=== PATIENT | female | born 1960 | race Caucasian/White ===

== ENCOUNTER 2016-11-14 07:47 | Outpatient (CLI) | payer MEDICAID | END 2016-11-14 07:48 | disposition home or self-care (01) | DX: I10 Essential (primary) hypertension (principal); E78.5 Hyperlipidemia, unspecified; E03.9 Hypothyroidism, unspecified ==

== ENCOUNTER 2017-03-22 08:00 | Outpatient (CLI) | payer MEDICAID ==
[2017-03-22 13:53] LABS: ALBUMIN/GLOBULIN RATIO 1.5 (1.0-2.2); BILIRUBIN,TOTAL 2.2 mg/dL (0.2-1.0); BUN - BLOOD UREA NITROGEN 11 mg/dL (6-20); CALCIUM 9.4 mg/dL (8.5-10.3); CARBON DIOXIDE - CO2 26 mmol/L (21-32); CHLORIDE 102 mmol/L (101-111); CHOL/HDL RATIO 2.8 (<4.4); CHOLESTEROL 205 mg/dL; CREATININE 0.5 mg/dL (0.4-1.0); GFR - MDRD 127 (>89); GLUCOSE 100 mg/dL (70-100); HDL CHOLESTEROL 74 mg/dL; LDL/HDL RATIO 1.4 (<4.4); POTASSIUM 3.8 mmol/L (3.5-5.0); SODIUM 137 mmol/L (135-145); TOTAL PROTEIN 7.9 g/dL (6.7-8.2); TRIGLYCERIDES 156 mg/dL; VLDL CHOLESTEROL 31 mg/dL
== END 2017-03-22 08:01 | disposition home or self-care (01) ==
LOC: LAB.N 08:00
PROVIDERS: ATTEND Family Medicine
DX: I10 Essential (primary) hypertension (principal); E78.5 Hyperlipidemia, unspecified; E03.9 Hypothyroidism, unspecified
CPT/HCPCS: 36415; 80053; 80061; 84443

== ENCOUNTER 2017-09-01 15:27 | Outpatient (CLI) | payer MEDICAID ==
--- NOTE | 2017-09-04 16:07 | Mammography Report ---
DIGITAL SCREENING MAMMOGRAM: 09/01/2017 CLINICAL INDICATION: A 57-year-old with history of late childbearing, for screening. COMPARISON: 12/2015, 12/2013, 11/2011, 12/2010. TECHNIQUE: Routine CC and MLO projections were obtained of the breasts. FINDINGS: Scattered fibroglandular tissue is present within the breasts. There are no dominant masses, suspicious microcalcifications, or secondary signs of malignancy. In comparison to the previous studies, there are no significant changes. ASSESSMENT: NO MAMMOGRAPHIC EVIDENCE OF MALIGNANCY. NO SIGNIFICANT INTERVAL CHANGES. RECOMMENDATION: Screening mammography is recommended annually. BIRADS category 1 - negative. STANDARD QUALIFYING STATEMENTS: 1. This examination was reviewed with the aid of Computed-Aided Detection (CAD). 2. A negative or benign imaging report should not delay biopsy if clinically suspicious findings are present. Consider surgical consultation if warranted. More than 5% of cancers are not identified by imaging. 3. Dense breasts may obscure an underlying neoplasm. TD: 09/04/2017 16:07
== END 2017-09-01 15:28 | disposition home or self-care (01) ==
LOC: DI.N 15:27
PROVIDERS: ATTEND Family Medicine
DX: Z00.00 Encounter for general adult medical examination without abnormal findings (principal)
CPT/HCPCS: 77067

== ENCOUNTER 2018-12-10 15:12 | Outpatient (CLI) | payer SELFPAY | END 2018-12-10 23:59 | disposition home or self-care (01) | LOC: LAB.N 15:12 | PROVIDERS: ATTEND Nurse Practitioner Gerontology | DX: E03.9 Hypothyroidism, unspecified (principal) | CPT/HCPCS: 36415; 84443 ==

== ENCOUNTER 2018-12-13 11:26 | Emergency (ER) | payer SELFPAY ==
--- NOTE | 2018-12-13 11:45 | ED Physician Documentation ---
PD HPI ABD PAIN - Stated complaint Stated Complaint: LT BACK PX - Chief complaint Chief Complaint: Abd Pain - History obtained from History obtained from: Patient - History of Present Illness Timing - onset: How many days ago (few) Timing - duration: Days (few) Timing - details: Gradual onset, Still present, Waxing and waning Quality: Aching, Sharp, Pain Location: LLQ Radiation: Left flank Improved by: Laying still, Position (feels better lying). No: Eating Worsened by: Moving, Breathing, Position. No: Eating, Palpation Associated symptoms: No: Fever, Nausea, Diarrhea, Constipation, Dysuria, Hem aturia, Chest pain Similar symptoms before: Has not had sx before Review of Systems Constitutional: denies: Fever, Chills, Myalgias Nose: denies: Rhinorrhea / runny nose, Congestion Throat: denies: Sore throat Cardiac: denies: Chest pain / pressure, Palpitations Respiratory: denies: Cough GI: reports: Abdominal Pain (left sided lower to lateral mid abd, and some to LLQ.) Skin: denies: Rash Musculoskeletal: reports: Back pain. denies: Neck pain, Extremity pain Neurologic: denies: Focal weakness, Numbness PD PAST MEDICAL HISTORY - Past Medical History Cardiovascular: None Respiratory: None Endocrine/Autoimmune: HyPOthyroidism GI: Chronic constipation : None HEENT: None Psych: Anxiety Musculoskeletal: None - Present Medications Home Medications: Ambulatory Orders Medication Instructions Recorded Confirmed Levothyroxine [Synthroid] 75 mcg PO DAILY 08/21/14 08/21/14 Hydrocodone/Acetaminophen [Irwin 1 each PO Q6H PRN #20 tablet 12/13/18 5-325 Tablet] Methocarbamol [Robaxin] 500 mg PO Q6H PRN #20 tablet 12/13/18 Naproxen 500 mg PO BID #20 tablet 12/13/18 - Allergies Allergies/Adverse Reactions: Allergies Allergy/AdvReac Type Severity Reaction Status Date / Time No Known Drug Allergies Allergy Verified 12/13/18 11:35 PD ED PE NORMAL - Vitals Vital signs reviewed: Yes - General General: Alert and oriented X 3, No acute distress, Well developed/nourished - HEENT HEENT: Pharynx benign - Neck Neck: Supple, no meningeal sign, No adenopathy - Cardiac Cardiac: RRR, No murmur - Respiratory Respiratory: Clear bilaterally - Abdomen Abdomen: Soft - Rectal Rectal: Deferred - Back Back: No spinal TTP, Other (some percussion tenderness left flank. No rash nor sores. ) - Derm Derm: Normal color, No rash Results - Vitals Vitals: Vital Signs - 24 hr 12/13/18 12/13/18 11:33 14:14 Temperature 36.7 C 36.7 C Heart Rate 86 66 Respiratory 18 16 Rate Blood Pressure 160/80 H 122/76 O2 Saturation 99 98 Oxygen O2 Source Room air - Labs Labs: Laboratory Tests 12/13/18 12/13/18 12/13/18 11:45 11:45 12:19 WBC 7.8 RBC 4.78 Hgb 15.0 Hct 43.1 MCV 90.1 MCH 31.4 H MCHC 34.8 RDW 12.3 Plt Count 224 MPV 9.9 Neut # (Auto) 4.6 Lymph # (Auto) 2.5 Towns # (Auto) 0.5 Eos # (Auto) 0.2 Baso # (Auto) 0.1 Absolute Nucleated RBC 0.00 Nucleated RBC % 0.1 Sodium 143 Potassium 3.6 Chloride 105 Carbon Dioxide 26 Anion Gap 12.0 BUN 11 Creatinine 0.6 Estimated GFR (MDRD) 102 Glucose 147 H Calcium 10.2 Total Bilirubin 1.2 H AST 24 ALT 36 Alkaline Phosphatase 84 Total Protein 8.8 H Albumin 4.6 Globulin 4.2 Albumin/Globulin Ratio 1.1 Lipase 36 Urine Color YELLOW Urine Clarity CLEAR Urine pH 6.0 Ur Specific Inlet 1.025 Urine Protein NEGATIVE Urine Glucose (UA) NEGATIVE Urine Ketones NEGATIVE Urine Occult Blood TRACE-LYSE Urine Nitrite NEGATIVE Urine Bilirubin NEGATIVE Urine Urobilinogen 0.2 (NORMAL) Ur Leukocyte Esterase NEGATIVE Ur Microscopic Review NOT INDICATED Urine Culture Comments NOT INDICATED - Rads (name of study) KUB CT Radiology: Prelim report reviewed (no acute process seen to account for the pain. ), EMP read contemporaneously, See rad report PD MEDICAL DECISION MAKING - ED course Complexity details: reviewed results (no signs of stones, diverticulitis, etc. Gave meds for pain. Presume it is musculoskeletal. No rash and it has been few days already.), considered differential (could be myofascial, given some tenderness in back and hurting with movement. But wraps to left lower abd, so concern for kidney stone, diverticulitis, vascular problem, among others. ), d/w patient Departure - Departure Disposition: 01 Home, Self Care Clinical Impression: Flank pain, acute Condition: Stable Record reviewed to determine appropriate education?: Yes Instructions: ED Flank Pain Uncertain Cause Follow-Up: Cynthia Peterson ARNP [Primary Care Provider] - Prescriptions: Hydrocodone/Acetaminophen [Irwin 5-325 Tablet] 1 each PO Q6H PRN #20 tablet PRN Reason: Pain Methocarbamol [Robaxin] 500 mg PO Q6H PRN #20 tablet PRN Reason: Spasms Naproxen 500 mg PO BID #20 tablet Comments: Your CT scan, blood tests, urine test did not show an acute problem such as infection or kidney stones. I presume your back pain is related to muscular pain. We will treated with anti-inflammatories and muscle relaxants and pain medicine. Activity as tolerated based on comfort. Recheck if not improving over the next several days to week. Discharge Date/Time: 12/13/18 14:23
[2018-12-13] MEDS ORDERED: SODIUM CHLORIDE 0.9% 1,000 ML IV ONE (12:14)
[2018-12-13] MEDS ORDERED: KETOROLAC 30 MG/ML VIAL IVP STA (12:14)
[2018-12-13] MEDS ORDERED: HYDROmorphone 1 MG/ML CARPUJECT IVP STA ×2 (12:14→13:40)
[2018-12-13] MEDS ORDERED: ONDANSETRON 4 MG/2 ML VIAL IVP STA (12:14)
[2018-12-13 12:23] LABS: BASOPHILS # (AUTO) 0.1 10^3/uL (0.0-0.1); BASOPHILS % (AUTO) 1.2 %; EOSINOPHILS # (AUTO) 0.2 10^3/uL (0.0-0.7); EOSINOPHILS % (AUTO) 2.1 %; LYMPHOCYTES # (AUTO) 2.5 10^3/uL (1.5-3.5); LYMPHOCYTES % (AUTO) 31.7 %; MEAN CORPUSCULAR HEMOGLOBIN 31.4 pg (27.0-31.0); MEAN CORPUSCULAR HGB CONC 34.8 g/dL (32.0-36.0); MEAN CORPUSCULAR VOLUME 90.1 fL (81.0-99.0); MEAN PLATELET VOLUME 9.9 fL (7.9-10.8); MONOCYTES # (AUTO) 0.5 10^3/uL (0.0-1.0); MONOCYTES % (AUTO) 6.3 %; NEUTROPHILS # (AUTO) 4.6 10^3/uL (1.5-6.6); NEUTROPHILS % (AUTO) 58.7 %; PLT - PLATELET COUNT 224 10^3/uL (130-450); RED BLOOD COUNT 4.78 10^6/uL (4.20-5.40); RED CELL DISTRIBUTION WIDTH 12.3 % (12.0-15.0); WHITE BLOOD COUNT 7.8 x10^3/uL (4.8-10.8)
[2018-12-13 12:35] LABS: ALBUMIN 4.6 g/dL (3.2-5.5); ALBUMIN/GLOBULIN RATIO 1.1 (1.0-2.2); BILIRUBIN,TOTAL 1.2 mg/dL (0.2-1.0); CALCIUM 10.2 mg/dL (8.5-10.3); CREATININE 0.6 mg/dL (0.4-1.0); TOTAL PROTEIN 8.8 g/dL (6.7-8.2)
[2018-12-13 12:36] LABS: BILIRUBIN,URINE NEGATIVE (NEGATIVE); GLUCOSE, URINE (UA) NEGATIVE (NEGATIVE); KETONES,URINE (UA) NEGATIVE (NEGATIVE); LEUKOCYTE ESTERASE, URINE NEGATIVE (NEGATIVE); NITRITE,URINE NEGATIVE (NEGATIVE); OCCULT BLOOD,URINE TRACE-LYSE (NEGATIVE); PROTEIN,URINE NEGATIVE (NEGATIVE); UROBILINOGEN,URINE 0.2 (NORMAL) E.U./dL (NORMAL)
[2018-12-13 12:37] LABS: CLARITY,URINE CLEAR (CLEAR)
--- NOTE | 2018-12-13 13:19 | CT Report ---
Reason: left flank to abd pain for few days Procedure Date: 12/13/2018 Accession Number: [id number] / [id number] Procedure: CT - Abdomen/Pelvis WO CPT Code: FULL RESULT: EXAM: CT ABDOMEN AND PELVIS (CT KUB) EXAM DATE: 12/13/2018 12:58 PM. CLINICAL HISTORY: Left flank to abd pain for few days. COMPARISONS: None. TECHNIQUE: Routine axial helical CT imaging was performed through the abdomen and pelvis without IV contrast. Reconstructions: Coronal and sagittal. In accordance with CT protocol optimization, one or more of the following dose reduction techniques were utilized for this exam: automated exposure control, adjustment of mA and/or KV based on patient size, or use of iterative reconstructive technique. FINDINGS: Lung Bases: Unremarkable. Right Kidney/Ureter: No stones, hydronephrosis, or hydroureter. No perinephric fat stranding. Left Kidney/Ureter: No stones, hydronephrosis, or hydroureter. No perinephric fat stranding. Other Solid Organs: Noncontrast images of the solid organs are grossly unremarkable. Gallbladder/Bile Ducts: Cholelithiasis without acute cholecystitis or biliary dilatation. Peritoneal Cavity: No free fluid, free air or mariana adenopathy. Bowel is grossly unremarkable. Pelvic Organs: No bladder stones or wall thickening. Benign anterior uterine calcification of no significance. Otherwise, images of the visualized pelvic organs are unremarkable. Vasculature: Unremarkable. Other: None. IMPRESSION: 1. Cholelithiasis without acute cholecystitis. 2. Otherwise negative examination. No evidence of nephrolithiasis or ureteral obstruction. RADIA
[2018-12-13] MEDS ORDERED: DEXAMETHASONE 10 MG/ML VIAL IVP STA (13:40)
[2018-12-13 14:15] VITALS: BP 122/76
== END 2018-12-13 14:23 | disposition home or self-care (01) ==
LOC: ED 11:26
DX: R10.32 Left lower quadrant pain (principal); M54.9 Dorsalgia, unspecified; K80.20 Calculus of gallbladder without cholecystitis without obstruction
CPT/HCPCS: 36415; 74176; 80053; 81003; 83690; 85025; 96361; 96374; 96375; 96376; 99283; J1170; 81001; 87086

== ENCOUNTER 2020-01-30 11:11 | Outpatient (CLI) | payer MEDICAID ==
[2020-01-30 18:18] LABS: BASOPHILS # (AUTO) 0.1 10^3/uL (0.0-0.1); BASOPHILS % (AUTO) 1.5 %; EOSINOPHILS # (AUTO) 0.2 10^3/uL (0.0-0.7); EOSINOPHILS % (AUTO) 3.5 %; HGB - HEMOGLOBIN 14.8 g/dL (12.0-16.0); LYMPHOCYTES # (AUTO) 1.7 10^3/uL (1.5-3.5); LYMPHOCYTES % (AUTO) 36.1 %; MEAN CORPUSCULAR HGB CONC 33.3 g/dL (32.0-36.0); MEAN CORPUSCULAR VOLUME 96.1 fL (81.0-99.0); MONOCYTES # (AUTO) 0.3 10^3/uL (0.0-1.0); MONOCYTES % (AUTO) 6.3 %; NEUTROPHILS # (AUTO) 2.5 10^3/uL (1.5-6.6); NEUTROPHILS % (AUTO) 52.4 %; PLT - PLATELET COUNT 226 10^3/uL (130-450); RED BLOOD COUNT 4.63 10^6/uL (4.20-5.40); RED CELL DISTRIBUTION WIDTH 12.3 % (12.0-15.0); WHITE BLOOD COUNT 4.8 x10^3/uL (4.8-10.8)
[2020-01-30 18:40] LABS: ALBUMIN 4.7 g/dL (3.2-5.5); ALBUMIN/GLOBULIN RATIO 1.7 (1.0-2.2); ALKALINE PHOSPHATASE 67 IU/L (42-121); ALT ALANINE AMINOTRANSFERASE 36 IU/L (10-60); AST ASPARTATE AMINOTRANSFERASE 29 IU/L (10-42); BUN - BLOOD UREA NITROGEN 10 mg/dL (6-20); CALCIUM 9.6 mg/dL (8.5-10.3); CARBON DIOXIDE - CO2 27 mmol/L (21-32); CHLORIDE 102 mmol/L (101-111); CREATININE 0.6 mg/dL (0.4-1.0); CRP - C-REACTIVE PROTEIN < 1.0 mg/dL (0-1.0); GLUCOSE 100 mg/dL (70-100); SODIUM 137 mmol/L (135-145); TOTAL PROTEIN 7.5 g/dL (6.7-8.2)
[2020-01-30 18:49] LABS: THYROID STIMULATING HORMONE 0.52 uIU/mL (0.34-5.60)
[2020-01-30 18:50] LABS: FREE T3 3.68 pg/mL (2.5-3.9)
[2020-01-30 18:51] LABS: FREE T4 (FREE THYROXINE) 1.21 ng/dL (0.58-1.64)
== END 2020-01-30 23:59 | disposition home or self-care (01) ==
LOC: LAB.WCP 11:11
PROVIDERS: ATTEND Family Medicine
DX: E03.9 Hypothyroidism, unspecified (principal); M25.462 Effusion, left knee
CPT/HCPCS: 36415; 80053; 84439; 84443; 84481; 85025; 85651; 86140

== ENCOUNTER 2021-03-04 12:53 | Outpatient (CLI) | payer MEDICAID ==
--- NOTE | 2021-03-05 12:21 | Mammography Report ---
BILATERAL DIGITAL SCREENING MAMMOGRAM 3D/2D: 03/04/2021 CLINICAL: Routine screening. Comparison is made to exams dated: 09/01/2017 mammogram, 12/14/2015 mammogram, 12/09/2013 mammogram, 11/30 mammogram, and 01/25/2011 mammogram - [facility]. There are scattered fibrogl andular elements in both breasts. No significant masses, calcifications, or other findings are seen in either breast. There has been no significant interval change. IMPRESSION: NEGATIVE There is no mammographic evidence of malignancy. A 1 year screening mammogram is recommended. This exam was interpreted at Station ID: [id number]. NOTE: For mammograms, a report in lay terms will be sent to the patient. Approximately 15% of breast malignancies will not be visualized mammographically. In the management of a palpable breast mass, a negative mammogram must not discourage biopsy of a clinically suspicious lesion. Electronically Signed By: John Gabriel M.D. aty/penrad:03/04/2021 14:24:37 ACR BI-RADS Category 1: Negative [id number] PARENCHYMAL PATTERN: (A) - The breast(s) demonstrate(s) scattered fibroglandular densities. BI-RADS CATEGORY: (1) - 1 RECOMMENDATION: (ANNUAL) - Recommend routine annual screening mammography. [id number] 1 year screening LATERALITY: (B)
== END 2021-03-04 12:54 | disposition home or self-care (01) ==
LOC: DI.N 12:53
PROVIDERS: ATTEND Family Medicine
DX: Z12.31 Encounter for screening mammogram for malignant neoplasm of breast (principal)